=== PATIENT | male | born 1950 | race Caucasian/White ===

== ENCOUNTER 2018-06-24 16:28 | Observation (INO) | payer SELFPAY ==
[2018-06-24] MEDS ORDERED: Sodium Chloride 0.9% 2.5 ML Syringe FLUSH PRN (16:30)
[2018-06-24] MEDS ORDERED: Sodium Chloride 0.9% 1,000 ML IV ONE (16:30)
[2018-06-24] MEDS ORDERED: Sodium Chloride 0.9% 10 ML Syringe FLUSH PRN (16:30)
[2018-06-24] MEDS ORDERED: Ondansetron 4 MG/2 ML SDV IVPUSH ONE (16:30)
[2018-06-24] MEDS ORDERED: Enoxaparin 100 MG/1 ML Syringe SUBCUT ONE (16:33)
[2018-06-24] MEDS ORDERED: Diltiazem 25 MG/5 ML SDV IVPUSH ONE ×2 (16:33→16:57)
--- NOTE | 2018-06-24 16:33 | EDM.PDOC ---
ED HPI GENERAL MEDICAL PROBLEM - General Chief Complaint: Respiratory Problem Stated Complaint: SICK Time Seen by Provider: 06/24/18 16:28 - History of Present Illness INITIAL COMMENTS - FREE TEXT/NARRATIVE: HISTORY AND PHYSICAL: History of present illness: The patient is a 67-year-old male who is followed at [facility] and was sent here from there be EMS ; we were initially told that the patient presented there and had some sadness but was not suicidal and not majorly depressed and that he complained of shortness of breath. Here the patient says that he went there because he did not have any food and he does not have any money or funds to buy the food as he did not get his Social Security check and he needed something to eat. He tells me that he did have shortness of breath but no chest pain per se and he did have a stomachache earlier but after he ate it was much improved and he thinks it was just because he was hungry. He had some nausea earlier as well but is not nauseated now and overall when we discussed his presenting symptoms and his history he seems to vacillate on the story depending on the interviewer. He says he doesn't have any leg pain or swelling he is not passing out or blacking out and he has been drinking hydration but it is not water or juice and he is mostly been consuming caffeinated products such as coffee and Mountain Dew. He has no cardiac or pulmonary history that is aware of and does admit that he has a history of depression and anxiety. He only takes ambilify and has no other prescription medication that he tells me about. He has no leg pain or swelling and says he was feeling fine until he went to [facility] today. He denies any palpitations. Review of systems: As per history of present illness and below otherwise all systems reviewed and negative. Past medical history: As per history of present illness and as reviewed below otherwise noncontributory. Surgical history: As per history of present illness and as reviewed below otherwise noncontributory. Social history: No reported history of drug or alcohol abuse. Family history: As per history of present illness and as reviewed below otherwise noncontributory. Physical exam: General: Well-developed well-nourished very tall male who is nontoxic and vital signs are noted by me. He speaking clearly and easily in ED and does not have a smell of ketones on his breath. He follows commands and is talkative and is not breathless on my evaluation. Vital signs are noted by me HEENT: Atraumatic, normocephalic, pupils reactive, negative for conjunctival pallor or scleral icterus, mucous membranes tacky, throat clear, neck supple, nontender, trachea midline. Lungs: Clear to auscultation, breath sounds equal bilaterally, chest nontender. No wheezing stridor or work of breathing Heart: S1S2, irregular rhythm and tachycardic rate on my evaluation but no overt murmur, negative for clicks, rubs, or JVD. Abdomen: Soft, nondistended, nontender. Negative for masses or hepatosplenomegaly. Negative for costovertebral tenderness. Pelvis: Stable nontender. Genitourinary: Deferred. Rectal: Deferred. Extremities: Atraumatic, negative for cords or calf pain. Neurovascular unremarkable. No pedal edema or leg asymmetry Neuro: Awake, alert, oriented. Cranial nerves II through XII unremarkable. Cerebellum unremarkable. Motor and sensory unremarkable throughout. Exam nonfocal. Diagnostics: EKG CBC CMP d-dimer INR troponin TSH UA influenza swab chest x-ray lactic acid CTA of the chest Therapeutics: IV O2 monitor IV fluids Cardizem Lovenox On reevaluation the patient's heart rate is very variable, when I entered the room it was 130s and he was trying to put his wallet back in his hands and as I spoke with them and he seemed to calm down somewhat he will go down to the 80s or 90s. He understands that he needs to be admitted to the hospital and we are currently awaiting the remainder of his testing results to contact the provider our hospitalist for admission. 1735: This case was discussed with our hospitalist Dr. Posey would like me to try to manage this patient without a Cardizem drip. After the second dose of Cardizem 10 mg his heart rate is now in the 80s. We will continue to observe and treat appropriately. I will continue monitoring his workup and plan for telemetry admission and less there is a status change in his heart rate. After a liter of IV fluids he still has not produced a urine sample. I will continue with IV hydration 1846: Case was rediscussed with Dr. Posey and he is aware of the lactic acid level and depending CTA results and the fact the patient has not made a urine yet despite IV fluids. He is already admitted the patient to telemetry as an observation and currently the patient's heart rate is in the 70s and he is resting quietly. I will monitor the results of the CTA and recontact the hospitalist as needed and plan on observation admission. He currently is not complaining of any shortness of breath or chest pain. 1900: Case was endorsed to Dr. Trejo to follow-up with CTA of the chest results and to improve the transfer to the floor. The patient still at this point has not given a UA sample but we will continue to try to get one. Impression: New-onset atrial fibrillation with RVR, symptomatic with shortness of breath; dehydration; history of anxiety and depression stable Definitive disposition and diagnosis as appropriate pending reevaluation and review of above. bodyaches Pain Score (Numeric/FACES): 8 - Related Data Allergies Allergy/AdvReac Type Severity Reaction Status Date / Time Penicillins Allergy Chills Verified 06/24/18 16:30 Home Meds: Home Meds ARIPiprazole [Abilify] 5 mg PO DAILY 06/24/18 [History] Acetaminophen [Tylenol Extra Strength] 500 mg PO ASDIRECTED PRN 06/24/18 [ History] ED ROS GENERAL - Review of Systems Review Of Systems: ROS reveals no pertinent complaints other than HPI. ED EXAM, GENERAL - Physical Exam Exam: See Below (See dictation) Course - Vital Signs Last Recorded V/S: Last Vital Signs Temp 36.6 C 06/24/18 16:31 Pulse 78 06/24/18 18:43 Resp 18 06/24/18 18:43 BP 107/66 06/24/18 18:43 Pulse Ox 98 06/24/18 18:43 - Orders/Labs/Meds Orders: Active Orders 24 hr Category Date Time Status Patient Status [ADT] Routine ADT 06/24/18 18:04 Active Blood Glucose Check, Bedside [RC] ONETIME Care 06/24/18 16:30 Active Cardiac Monitoring [RC] . DIRECTED Care 06/24/18 16:29 Active Cardiac Monitoring [RC] CONTINUOUS Care 06/24/18 18:05 Active EKG Documentation Completion [RC] STAT Care 06/24/18 16:29 Active Oxygen Therapy [RC] PRN Care 06/24/18 18:04 Active Oxygen Therapy, ED [RC] ASDIRECTED Care 06/24/18 16:29 Active Pulse Oximetry [RC] ASDIRECTED Care 06/24/18 16:29 Active Up With Assistance [RC] ASDIRECTED Care 06/24/18 18:04 Active VTE/DVT Education [RC] PER UNIT ROUTINE Care 06/24/18 18:04 Active Vital Signs [RC] Q4H Care 06/24/18 18:04 Active Heart Healthy Diet [DIET] Diet 06/24/18 Breakfast Active Ang Chest [CT] Stat Exams 06/24/18 17:19 Taken CBC WITH AUTO DIFF [HEME] AM Lab 06/25/18 05:11 Ordered COMPREHENSIVE METABOLIC PN,CMP [CHEM] AM Lab 06/25/18 05:11 Ordered MAGNESIUM [CHEM] Routine Lab 06/24/18 18:04 Ordered TROPONIN I [CHEM] Q6H Lab 06/24/18 18:04 Ordered TROPONIN I [CHEM] Q6H Lab 06/25/18 00:04 Ordered UA RFX MINH AND CULT IF INDIC [URIN] Stat Lab 06/24/18 16:30 Ordered ARIPiprazole [Abilify] Med 06/25/18 09:00 Active 5 mg PO DAILY Acetaminophen [Tylenol] Med 06/24/18 18:04 Active 650 mg PO Q4H PRN Docusate Sodium [Colace] Med 06/24/18 18:04 Active 100 mg PO BID PRN Enoxaparin [Lovenox] Med 06/24/18 18:15 Active 40 mg SUBCUT Q24H Nicotine [Habitrol] Med 06/24/18 18:15 Active 14 mg TRDERM DAILY Ondansetron [Zofran ODT] Med 06/24/18 18:04 Active 4 mg PO Q4H PRN Sodium Chloride 0.9% [Normal Saline] 1,000 ml Med 06/24/18 17:45 Active IV ASDIRECTED Sodium Chloride 0.9% [Normal Saline] 1,000 ml Med 06/24/18 18:15 Active IV ASDIRECTED Sodium Chloride 0.9% [Saline Flush] Med 06/24/18 16:30 Active 10 ml FLUSH ASDIRECTED PRN Sodium Chloride 0.9% [Saline Flush] Med 06/24/18 16:30 Active 2.5 ml FLUSH ASDIRECTED PRN Temazepam [Restoril] Med 06/24/18 18:04 Active 15 mg PO BEDTIME PRN oxyCODONE Med 06/24/18 18:04 Active 5 mg PO Q4H PRN Saline Lock Insert [OM.PC] Stat Oth 06/24/18 16:29 Ordered Resuscitation Status Routine Resus Stat 06/24/18 18:04 Ordered Medication Orders Acetaminophen (Tylenol) 650 mg PO Q4H PRN PRN Reason: Pain (Mild 1-3)/fever Aripiprazole (Abilify) 5 mg PO DAILY MESERET Docusate Sodium (Colace) 100 mg PO BID PRN PRN Reason: Constipation Enoxaparin Sodium (Lovenox) 40 mg SUBCUT Q24H MESERET Sodium Chloride (Normal Saline) 1,000 mls @ 125 mls/hr IV ASDIRECTED MESERET Last Infusion: 06/24/18 18:42 Dose: 999 mls/hr Admin: 06/24/18 17:44 Dose: 125 mls/hr Sodium Chloride (Normal Saline) 1,000 mls @ 75 mls/hr IV ASDIRECTED [facility] Nicotine (Habitrol) 14 mg TRDERM DAILY [facility] Ondansetron HCl (Zofran Odt) 4 mg PO Q4H PRN PRN Reason: nausea, able to take PO Oxycodone HCl (Oxycodone) 5 mg PO Q4H PRN PRN Reason: Pain (moderate 4-6) Sodium Chloride (Saline Flush) 10 ml FLUSH ASDIRECTED PRN PRN Reason: Keep Vein Open Last Admin: 06/24/18 16:39 Dose: 10 ml Sodium Chloride (Saline Flush) 2.5 ml FLUSH ASDIRECTED PRN PRN Reason: Keep Vein Open Last Admin: 06/24/18 16:39 Dose: 2.5 ml Temazepam (Restoril) 15 mg PO BEDTIME PRN PRN Reason: Sleep Labs: Laboratory Tests 06/24/18 06/24/18 06/24/18 Range/Units 16:35 16:35 16:35 WBC 8.45 (4.0-11.0) K/uL RBC 4.67 (4.50-5.90) M/uL Hgb 10.4 L (13.0-17.0) g/dL Hct 33.7 L (38.0-50.0) % MCV 72.2 L (80.0-98.0) fL MCH 22.3 L (27.0-32.0) pg MCHC 30.9 L (31.0-37.0) g/dL RDW Std Deviation 48.3 (28.0-62.0) fl RDW Coeff of Hitesh 19 H (11.0-15.0) % Plt Count 199 (150-400) K/uL MPV 9.80 (7.40-12.00) fL Neut % (Auto) 84.9 H (48.0-80.0) % Lymph % (Auto) 5.7 L (16.0-40.0) % [place] % (Auto) 9.3 (0.0-15.0) % Eos % (Auto) 0.0 (0.0-7.0) % Baso % (Auto) 0.1 (0.0-1.5) % Neut # (Auto) 7.2 H (1.4-5.7) K/uL Lymph # (Auto) 0.5 L (0.6-2.4) K/uL [place] # (Auto) 0.8 (0.0-0.8) K/uL Eos # (Auto) 0.0 (0.0-0.7) K/uL Baso # (Auto) 0.0 (0.0-0.1) K/uL Nucleated RBC % 0.0 /100WBC Nucleated RBCs # 0 K/uL INR 1.39 D-Dimer, Quantitative 1.83 H (0.0-0.50) mg/L FEU Lactate 3.7 H (0.20-2.00) mmol/L Sodium (136-148) mmol/L Potassium (3.5-5.1) mmol/L Chloride (98-107) mmol/L Carbon Dioxide (21.0-32.0) mmol/L BUN (7.0-18.0) mg/dL Creatinine (0.8-1.3) mg/dL Est Cr Clr Drug Dosing mL/min Estimated GFR (MDRD) ml/min Glucose (74-106) mg/dL POC Glucose (60-110) mg/dL Calcium (8.5-10.1) mg/dL Total Bilirubin (0.2-1.0) mg/dL AST (15-37) IU/L ALT (14-63) IU/L Alkaline Phosphatase (46-116) U/L Troponin I (0.000-0.056) ng/mL Total Protein (6.4-8.2) g/dL Albumin (3.4-5.0) g/dL Globulin (2.6-4.0) g/dL Albumin/Globulin Ratio (0.9-1.6) TSH 3rd Generation (0.36-3.74) uIU/mL 06/24/18 06/24/18 Range/Units 16:35 16:48 WBC (4.0-11.0) K/uL RBC (4.50-5.90) M/uL Hgb (13.0-17.0) g/dL Hct (38.0-50.0) % MCV (80.0-98.0) fL MCH (27.0-32.0) pg MCHC (31.0-37.0) g/dL RDW Std Deviation (28.0-62.0) fl RDW Coeff of Hitesh (11.0-15.0) % Plt Count (150-400) K/uL MPV (7.40-12.00) fL Neut % (Auto) (48.0-80.0) % Lymph % (Auto) (16.0-40.0) % [place] % (Auto) (0.0-15.0) % Eos % (Auto) (0.0-7.0) % Baso % (Auto) (0.0-1.5) % Neut # (Auto) (1.4-5.7) K/uL Lymph # (Auto) (0.6-2.4) K/uL [place] # (Auto) (0.0-0.8) K/uL Eos # (Auto) (0.0-0.7) K/uL Baso # (Auto) (0.0-0.1) K/uL Nucleated RBC % /100WBC Nucleated RBCs # K/uL INR D-Dimer, Quantitative (0.0-0.50) mg/L FEU Lactate (0.20-2.00) mmol/L Sodium 139 (136-148) mmol/L Potassium 5.3 H (3.5-5.1) mmol/L Chloride 104 (98-107) mmol/L Carbon Dioxide 19.0 L (21.0-32.0) mmol/L BUN 27 H (7.0-18.0) mg/dL Creatinine 1.7 H (0.8-1.3) mg/dL Est Cr Clr Drug Dosing 44.47 mL/min Estimated GFR (MDRD) 40.7 ml/min Glucose 111 H (74-106) mg/dL POC Glucose 111 H (60-110) mg/dL Calcium 8.8 (8.5-10.1) mg/dL Total Bilirubin 0.9 (0.2-1.0) mg/dL AST 134 H (15-37) IU/L ALT 128 H (14-63) IU/L Alkaline Phosphatase 130 H (46-116) U/L Troponin I < 0.050 (0.000-0.056) ng/mL Total Protein 7.4 (6.4-8.2) g/dL Albumin 3.5 (3.4-5.0) g/dL Globulin 3.9 (2.6-4.0) g/dL Albumin/Globulin Ratio 0.9 (0.9-1.6) TSH 3rd Generation 2.18 (0.36-3.74) uIU/mL Meds: Medications Generic Name Dose Route Start Last Admin Trade Name Freq PRN Reason Stop Dose Admin Acetaminophen 650 mg 06/24/18 18:04 Tylenol PO Q4H PRN Pain (Mild 1-3)/fever Aripiprazole 5 mg 06/25/18 09:00 Abilify PO DAILY MESERET Docusate Sodium 100 mg 06/24/18 18:04 Colace PO BID PRN Constipation Enoxaparin Sodium 40 mg 06/24/18 18:15 Lovenox SUBCUT Q24H MESERET Sodium Chloride 1,000 mls @ 125 mls/hr 06/24/18 17:45 06/24/18 18:42 Normal Saline IV 999 mls/hr ASDIRECTED MESERET Infusion Sodium Chloride 1,000 mls @ 75 mls/hr 06/24/18 18:15 Normal Saline IV ASDIRECTED MESERET Nicotine 14 mg 06/24/18 18:15 Habitrol TRDERM DAILY MESERET Ondansetron HCl 4 mg 06/24/18 18:04 Zofran Odt PO Q4H PRN nausea, able to take PO Oxycodone HCl 5 mg 06/24/18 18:04 Oxycodone PO Q4H PRN Pain (moderate 4-6) Sodium Chloride 10 ml 06/24/18 16:30 06/24/18 16:39 Saline Flush FLUSH 10 ml ASDIRECTED PRN Administration Keep Vein Open Sodium Chloride 2.5 ml 06/24/18 16:30 06/24/18 16:39 Saline Flush FLUSH 2.5 ml ASDIRECTED PRN Administration Keep Vein Open Temazepam 15 mg 06/24/18 18:04 Restoril PO BEDTIME PRN Sleep Discontinued Medications Generic Name Dose Route Start Last Admin Trade Name Freq PRN Reason Stop Dose Admin Diltiazem HCl 10 mg 06/24/18 16:33 06/24/18 16:40 Diltiazem IVPUSH 06/24/18 16:34 10 mg ONETIME ONE Administration Diltiazem HCl 10 mg 06/24/18 16:57 06/24/18 17:18 Diltiazem IVPUSH 06/24/18 16:58 10 mg ONETIME ONE Administration Enoxaparin Sodium 75 mg 06/24/18 16:33 06/24/18 16:39 Lovenox SUBCUT 06/24/18 16:34 75 mg ONETIME ONE Administration Sodium Chloride 1,000 mls @ 999 mls/hr 06/24/18 16:30 06/24/18 16:39 Normal Saline IV 06/24/18 17:30 999 mls/hr STAT ONE Administration Iopamidol 50 ml 06/24/18 18:50 06/24/18 18:50 Isovue-370 (76%) IV 06/24/18 18:51 50 ml ONETIME ONE Administration Ondansetron HCl 4 mg 06/24/18 16:30 06/24/18 16:40 Zofran IVPUSH 06/24/18 16:31 4 mg ONETIME ONE Administration Departure - Departure Time of Disposition: 18:48 Disposition: Refer to Observation Condition: Good Clinical Impression: Atrial fibrillation with RVR - Discharge Information Referrals: PCP,None [Primary Care Provider] - Forms: ED Department Discharge - My Orders Last 24 Hours: My Active Orders 06/24/18 16:29 Cardiac Monitoring [RC] . DIRECTED EKG Documentation Completion [RC] STAT Oxygen Therapy, ED [RC] ASDIRECTED Pulse Oximetry [RC] ASDIRECTED Saline Lock Insert [OM.PC] Stat 06/24/18 16:30 Blood Glucose Check, Bedside [RC] ONETIME UA RFX MINH AND CULT IF INDIC [URIN] Stat Sodium Chloride 0.9% [Saline Flush] 10 ml FLUSH ASDIRECTED PRN Sodium Chloride 0.9% [Saline Flush] 2.5 ml FLUSH ASDIRECTED PRN 06/24/18 17:19 Ang Chest [CT] Stat 06/24/18 17:45 Sodium Chloride 0.9% [Normal Saline] 1,000 ml IV ASDIRECTED - Assessment/Plan Last 24 Hours: My Active Orders 06/24/18 16:29 Cardiac Monitoring [RC] . DIRECTED EKG Documentation Completion [RC] STAT Oxygen Therapy, ED [RC] ASDIRECTED Pulse Oximetry [RC] ASDIRECTED Saline Lock Insert [OM.PC] Stat 06/24/18 16:30 Blood Glucose Check, Bedside [RC] ONETIME UA RFX MINH AND CULT IF INDIC [URIN] Stat Sodium Chloride 0.9% [Saline Flush] 10 ml FLUSH ASDIRECTED PRN Sodium Chloride 0.9% [Saline Flush] 2.5 ml FLUSH ASDIRECTED PRN 06/24/18 17:19 Ang Chest [CT] Stat 06/24/18 17:45 Sodium Chloride 0.9% [Normal Saline] 1,000 ml IV ASDIRECTED
--- NOTE | 2018-06-24 17:11 | CR ---
Indication: Shortness of breath, anxiety Technique: Chest 1 view. Comparison: None Findings: Cardiomegaly. Normal superior mediastinum. No focal infiltrate, mass, effusion, or pneumothorax. Osseous structures intact. Impression: No sign of acute disease. Cardiomegaly. Dictated by Gege Bolton MD @ Jun 24 2018 5:09PM Signed by Dr. Gege Bolton @ Jun 24 2018 5:09PM
[2018-06-24] MEDS ORDERED: Sodium Chloride 0.9% 1,000 ML IV SCH ×2 (17:45→18:15)
[2018-06-24 17:48] LABS: CHLORIDE,CL 104 mmol/L (98-107); SODIUM,NA 139 mmol/L (136-148)
[2018-06-24] MEDS ORDERED: Docusate Sodium 100 MG Cap PO PRN (18:04)
[2018-06-24] MEDS ORDERED: Temazepam 15 MG Cap PO PRN (18:04)
[2018-06-24] MEDS ORDERED: oxyCODONE 5 MG Tab PO PRN (18:04)
[2018-06-24] MEDS ORDERED: Ondansetron 4 MG Tab.DIS PO PRN (18:04)
[2018-06-24] MEDS ORDERED: Nicotine 14 MG/24 Hr Patch TRDERM SCH (18:15)
[2018-06-24] MEDS ORDERED: Enoxaparin 40 MG/0.4 ML Syringe SUBCUT SCH (18:15)
--- NOTE | 2018-06-24 18:38 | PCM.HP ---
H&P History of Present Illness - General Date of Service: 06/24/18 Admit Problem/Dx: Admission Diagnosis/Problem Admission Diagnosis/Problem Atrial fibrillation Source of Information: Patient History Limitations: Reports: Other (Unreliable historian) - History of Present Illness Initial Comments - Free Text/Narative: The patient is a 67-year-old gentleman who is currently being followed by [facility] and was sent here via EMS. The patient is currently living in a local motel and his also security money ran out and he no longer has a place to live nor does he have any foods. The patient has been complaining of pain secondary to his arthritis however during the emergency department visit he was noted to be short of breath and have atrial fibrillation with RVR. The patient's heart rate was around 160 bpm. The patient' s narration is somewhat scattered and he says that he has been taking his Abilify. He seems that he has no concern with regards to his A. fib with RVR at this time. The patient has denied any pain except associated with his ankles and knees due to his arthritis. He also says that he has been hungry. He has denied any chest pain or palpitations. The patient has no other visits locally with medical services and he says that he is from [place] and he came here because "they don't want me there". Onset of Symptoms: Reports: Unknown/Unsure Duration of Symptoms: Reports: Week(s): Location: Reports: Head Quality: Reports: Ache, Throbbing Severity: Moderate Improves with: Reports: Rest Worsens with: Reports: Movement Context: Reports: Activity/Exercise Associated Symptoms: Reports: No Other Symptoms bodyaches Pain Score (Numeric/FACES): 8 - Related Data Allergies/Adverse Reactions: Allergies Allergy/AdvReac Type Severity Reaction Status Date / Time Penicillins Allergy Chills Verified 06/24/18 16:30 Home Medications: Home Meds ARIPiprazole [Abilify] 5 mg PO DAILY 06/24/18 [History] Acetaminophen [Tylenol Extra Strength] 500 mg PO ASDIRECTED PRN 06/24/18 [ History] Past Medical History HEENT History: Reports: None Cardiovascular History: Reports: None Respiratory History: Reports: None Gastrointestinal History: Reports: None Genitourinary History: Reports: None Musculoskeletal History: Reports: Arthritis Neurological History: Reports: None Psychiatric History: Reports: Anxiety, Depression Endocrine/Metabolic History: Reports: None Hematologic History: Reports: None Immunologic History: Reports: None Oncologic (Cancer) History: Reports: None Dermatologic History: Reports: None - Past Surgical History Head Surgeries/Procedures: Reports: None HEENT Surgical History: Reports: None Cardiovascular Surgical History: Reports: None Respiratory Surgical History: Reports: None GI Surgical History: Reports: None Male Surgical History: Reports: None Endocrine Surgical History: Reports: None Neurological Surgical History: Reports: None Musculoskeletal Surgical History: Reports: Other (See Below) Other Musculoskeletal Surgeries/Procedures:: left hip repair Oncologic Surgical History: Reports: None Dermatological Surgical History: Reports: None Social & Family History - Family History Family Medical History: Noncontributory - Tobacco Use Smoking Status *Q: Former Smoker Used Tobacco, but Quit: Yes Month/Year Tobacco Last Used: 15 - Caffeine Use Caffeine Use: Reports: Coffee, Soda - Recreational Drug Use Recreational Drug Use: No - Living Situation & Occupation Living situation: Reports: Single, Other (Homeless) Occupation: Unemployed H&P Review of Systems - Review of Systems: Review Of Systems: See Below General: Reports: Decreased Appetite HEENT: Reports: No Symptoms Pulmonary: Reports: Shortness of Breath Cardiovascular: Reports: No Symptoms Gastrointestinal: Reports: No Symptoms Genitourinary: Reports: No Symptoms Musculoskeletal: Reports: Leg Pain Skin: Reports: No Symptoms Psychiatric: Reports: Confusion, Depression, Anxiety Neurological: Reports: Headache Hematologic/Lymphatic: Reports: No Symptoms Immunologic: Reports: No Symptoms Exam - Exam Exam: See Below - Vital Signs Vital Signs: Last Vital Signs Temp 36.6 C 06/24/18 16:31 Pulse 77 06/24/18 17:46 Resp 18 06/24/18 17:19 BP 126/65 06/24/18 17:19 Pulse Ox 98 06/24/18 17:19 Weight: 72.575 kg - Exam Quality Assessment: No: Supplemental Oxygen General: Alert, Oriented, Cooperative, Mild Distress, Other (Disheveled, temporal wasting) HEENT: Conjunctiva Clear, EACs Clear, EOMI, Nares Patent, Other (Poor oral hygiene, multiple caries), PERRLA. No: Mucosa Moist & Bowler (Oropharynx dry) Neck: Supple, Trachea Midline Lungs: Clear to Auscultation, Normal Respiratory Effort Cardiovascular: Regular Rate, Irregular Rhythm GI/Abdominal Exam: Normal Bowel Sounds, Soft, Non-Tender, No Distention (Male) Exam: Deferred Rectal (Males) Exam: Deferred Back Exam: Normal Inspection, Full Range of Motion Extremities: Normal Inspection, No Pedal Edema Skin: Warm, Dry, Intact Neurological: Cranial Nerves Intact. No: Normal Speech (Pressured speech) Psychiatric: Alert. No: Normal Affect (Flat), Normal Mood (Depressed) - Patient Data Lab Results Last 24 hrs: Laboratory Results - last 24 hr 06/24/18 06/24/18 06/24/18 Range/Units 16:35 16:35 16:35 WBC 8.45 (4.0-11.0) K/uL RBC 4.67 (4.50-5.90) M/uL Hgb 10.4 L (13.0-17.0) g/dL Hct 33.7 L (38.0-50.0) % MCV 72.2 L (80.0-98.0) fL MCH 22.3 L (27.0-32.0) pg MCHC 30.9 L (31.0-37.0) g/dL RDW Std Deviation 48.3 (28.0-62.0) fl RDW Coeff of Hitesh 19 H (11.0-15.0) % Plt Count 199 (150-400) K/uL MPV 9.80 (7.40-12.00) fL Neut % (Auto) 84.9 H (48.0-80.0) % Lymph % (Auto) 5.7 L (16.0-40.0) % Catron % (Auto) 9.3 (0.0-15.0) % Eos % (Auto) 0.0 (0.0-7.0) % Baso % (Auto) 0.1 (0.0-1.5) % Neut # (Auto) 7.2 H (1.4-5.7) K/uL Lymph # (Auto) 0.5 L (0.6-2.4) K/uL Catron # (Auto) 0.8 (0.0-0.8) K/uL Eos # (Auto) 0.0 (0.0-0.7) K/uL Baso # (Auto) 0.0 (0.0-0.1) K/uL Nucleated RBC % 0.0 /100WBC Nucleated RBCs # 0 K/uL INR 1.39 D-Dimer, Quantitative 1.83 H (0.0-0.50) mg/L FEU Lactate 3.7 H (0.20-2.00) mmol/L Sodium (136-148) mmol/L Potassium (3.5-5.1) mmol/L Chloride (98-107) mmol/L Carbon Dioxide (21.0-32.0) mmol/L BUN (7.0-18.0) mg/dL Creatinine (0.8-1.3) mg/dL Est Cr Clr Drug Dosing mL/min Estimated GFR (MDRD) ml/min Glucose (74-106) mg/dL POC Glucose (60-110) mg/dL Calcium (8.5-10.1) mg/dL Total Bilirubin (0.2-1.0) mg/dL AST (15-37) IU/L ALT (14-63) IU/L Alkaline Phosphatase (46-116) U/L Troponin I (0.000-0.056) ng/mL Total Protein (6.4-8.2) g/dL Albumin (3.4-5.0) g/dL Globulin (2.6-4.0) g/dL Albumin/Globulin Ratio (0.9-1.6) TSH 3rd Generation (0.36-3.74) uIU/mL 06/24/18 06/24/18 Range/Units 16:35 16:48 WBC (4.0-11.0) K/uL RBC (4.50-5.90) M/uL Hgb (13.0-17.0) g/dL Hct (38.0-50.0) % MCV (80.0-98.0) fL MCH (27.0-32.0) pg MCHC (31.0-37.0) g/dL RDW Std Deviation (28.0-62.0) fl RDW Coeff of Hitesh (11.0-15.0) % Plt Count (150-400) K/uL MPV (7.40-12.00) fL Neut % (Auto) (48.0-80.0) % Lymph % (Auto) (16.0-40.0) % Catron % (Auto) (0.0-15.0) % Eos % (Auto) (0.0-7.0) % Baso % (Auto) (0.0-1.5) % Neut # (Auto) (1.4-5.7) K/uL Lymph # (Auto) (0.6-2.4) K/uL Catron # (Auto) (0.0-0.8) K/uL Eos # (Auto) (0.0-0.7) K/uL Baso # (Auto) (0.0-0.1) K/uL Nucleated RBC % /100WBC Nucleated RBCs # K/uL INR D-Dimer, Quantitative (0.0-0.50) mg/L FEU Lactate (0.20-2.00) mmol/L Sodium 139 (136-148) mmol/L Potassium 5.3 H (3.5-5.1) mmol/L Chloride 104 (98-107) mmol/L Carbon Dioxide 19.0 L (21.0-32.0) mmol/L BUN 27 H (7.0-18.0) mg/dL Creatinine 1.7 H (0.8-1.3) mg/dL Est Cr Clr Drug Dosing 44.47 mL/min Estimated GFR (MDRD) 40.7 ml/min Glucose 111 H (74-106) mg/dL POC Glucose 111 H (60-110) mg/dL Calcium 8.8 (8.5-10.1) mg/dL Total Bilirubin 0.9 (0.2-1.0) mg/dL AST 134 H (15-37) IU/L ALT 128 H (14-63) IU/L Alkaline Phosphatase 130 H (46-116) U/L Troponin I < 0.050 (0.000-0.056) ng/mL Total Protein 7.4 (6.4-8.2) g/dL Albumin 3.5 (3.4-5.0) g/dL Globulin 3.9 (2.6-4.0) g/dL Albumin/Globulin Ratio 0.9 (0.9-1.6) TSH 3rd Generation 2.18 (0.36-3.74) uIU/mL Result Diagrams: 06/24/18 16:35 06/24/18 16:35 Bean Results Last 24 hrs: Microbiology 03/04/19 16:50 Influenza Type A Antigen Screen - Final Nasopharyngeal Swab NEGATIVE INFLUENZA A VIRUS AG Influenza Type B Antigen Screen - Final NEGATIVE INFLUENZA B VIRUS AG - Problem List (1) Atrial fibrillation with RVR SNOMED Code(s): 692603191675889 ICD Code: I48.91 - UNSPECIFIED ATRIAL FIBRILLATION Status: Chronic Priority: High Current Visit: Yes (2) Depression SNOMED Code(s): 63165505 ICD Code: F32.9 - MAJOR DEPRESSIVE DISORDER, SINGLE EPISODE, UNSPECIFIED Status: Chronic Priority: Medium Current Visit: Yes Qualifiers: Depression Type: major depressive disorder Major depression recurrence: unspecified whether recurrent Active/Remission status: currently active Major depression episode severity: severe Psychotic features: without psychotic features Qualified Code(s): F32.2 - Major depressive disorder, single episode, severe without psychotic features (3) Anxiety SNOMED Code(s): 95922045 ICD Code: F41.9 - ANXIETY DISORDER, UNSPECIFIED Status: Acute Priority: High Current Visit: Yes (4) Hyperkalemia SNOMED Code(s): 25846622 ICD Code: E87.5 - HYPERKALEMIA Status: Acute Priority: High Current Visit: Yes (5) Tobacco abuse disorder SNOMED Code(s): 704767949 ICD Code: Z72.0 - TOBACCO USE Status: Acute Priority: High Current Visit: Yes (6) Transaminitis SNOMED Code(s): 652542883, 068433199 ICD Code: R74.0 - NONSPEC ELEV OF LEVELS OF TRANSAMNS & LACTIC ACID DEHYDRGNSE Status: Acute Priority: High Current Visit: Yes Problem List Initiated/Reviewed/Updated: Yes Orders Last 24hrs: Active Orders 24 hr Category Date Time Status Patient Status [ADT] Routine ADT 06/24/18 18:04 Active Blood Glucose Check, Bedside [RC] ONETIME Care 06/24/18 16:30 Active Cardiac Monitoring [RC] . DIRECTED Care 06/24/18 16:29 Active Cardiac Monitoring [RC] CONTINUOUS Care 06/24/18 18:05 Active EKG Documentation Completion [RC] STAT Care 06/24/18 16:29 Active Oxygen Therapy [RC] PRN Care 06/24/18 18:04 Active Oxygen Therapy, ED [RC] ASDIRECTED Care 06/24/18 16:29 Active Pulse Oximetry [RC] ASDIRECTED Care 06/24/18 16:29 Active Up With Assistance [RC] ASDIRECTED Care 06/24/18 18:04 Active VTE/DVT Education [RC] PER UNIT ROUTINE Care 06/24/18 18:04 Active Vital Signs [RC] Q4H Care 06/24/18 18:04 Active Heart Healthy Diet [DIET] Diet 06/24/18 Breakfast Active Ang Chest [CT] Stat Exams 06/24/18 17:19 Ordered CBC WITH AUTO DIFF [HEME] AM Lab 06/25/18 05:11 Ordered COMPREHENSIVE METABOLIC PN,CMP [CHEM] AM Lab 06/25/18 05:11 Ordered MAGNESIUM [CHEM] Routine Lab 06/24/18 18:04 Ordered TROPONIN I [CHEM] Q6H Lab 06/24/18 18:04 Ordered TROPONIN I [CHEM] Q6H Lab 06/25/18 00:04 Ordered UA RFX BEAN AND CULT IF INDIC [URIN] Stat Lab 06/24/18 16:30 Ordered Acetaminophen [Tylenol] Med 06/24/18 18:04 Active 650 mg PO Q4H PRN Docusate Sodium [Colace] Med 06/24/18 18:04 Active 100 mg PO BID PRN Enoxaparin [Lovenox] Med 06/24/18 18:15 Active 40 mg SUBCUT Q24H Nicotine [Habitrol] Med 06/24/18 18:15 Active 14 mg TRDERM DAILY Ondansetron [Zofran ODT] Med 06/24/18 18:04 Active 4 mg PO Q4H PRN Sodium Chloride 0.9% [Normal Saline] 1,000 ml Med 06/24/18 17:45 Active IV ASDIRECTED Sodium Chloride 0.9% [Normal Saline] 1,000 ml Med 06/24/18 18:15 Active IV ASDIRECTED Sodium Chloride 0.9% [Saline Flush] Med 06/24/18 16:30 Active 10 ml FLUSH ASDIRECTED PRN Sodium Chloride 0.9% [Saline Flush] Med 06/24/18 16:30 Active 2.5 ml FLUSH ASDIRECTED PRN Temazepam [Restoril] Med 06/24/18 18:04 Active 15 mg PO BEDTIME PRN oxyCODONE Med 06/24/18 18:04 Active 5 mg PO Q4H PRN Saline Lock Insert [OM.PC] Stat Oth 06/24/18 16:29 Ordered Resuscitation Status Routine Resus Stat 06/24/18 18:04 Ordered Medication Orders Acetaminophen (Tylenol) 650 mg PO Q4H PRN PRN Reason: Pain (Mild 1-3)/fever Docusate Sodium (Colace) 100 mg PO BID PRN PRN Reason: Constipation Enoxaparin Sodium (Lovenox) 40 mg SUBCUT Q24H [facility] Sodium Chloride (Normal Saline) 1,000 mls @ 125 mls/hr IV ASDIRECTED MESERET Last Admin: 06/24/18 17:44 Dose: 125 mls/hr Sodium Chloride (Normal Saline) 1,000 mls @ 75 mls/hr IV ASDIRECTED [facility] Nicotine (Habitrol) 14 mg TRDERM DAILY [facility] Ondansetron HCl (Zofran Odt) 4 mg PO Q4H PRN PRN Reason: nausea, able to take PO Oxycodone HCl (Oxycodone) 5 mg PO Q4H PRN PRN Reason: Pain (moderate 4-6) Sodium Chloride (Saline Flush) 10 ml FLUSH ASDIRECTED PRN PRN Reason: Keep Vein Open Last Admin: 06/24/18 16:39 Dose: 10 ml Sodium Chloride (Saline Flush) 2.5 ml FLUSH ASDIRECTED PRN PRN Reason: Keep Vein Open Last Admin: 06/24/18 16:39 Dose: 2.5 ml Temazepam (Restoril) 15 mg PO BEDTIME PRN PRN Reason: Sleep Assessment/Plan Comment:: The patient is a 67-year-old gentleman who had been admitted primarily out of concern for atrial fibrillation with RVR. The patient also has been noted to be hyperkalemic as well as dehydrated and with fluid resuscitation this should resolve without further treatment. Repeat laboratory testings have been ordered for the morning. The patient had been given 20 mg of Cardizem in the emergency department and this seems to have slowed the patient's atrial fibrillation adequately. His previous vital signs had shown pulse rate around 60-75 bpm. He is currently anticoagulated with the use of Lovenox. Insulin sure with regards to the patient's social situation whether he'll be able to afford any medication for anticoagulation for his atrial fibrillation. The patient will be followed with regards to his elevations in his ALT and AST. These should normalize with the use of fluids. youth services librarian should be consult and with regards to his social situation and will need to have close follow up with [facility] services. He has been encouraged to ambulate.
[2018-06-24] MEDS ORDERED: Iopamidol 755 MG/ML 50 ML Bottle IV ONE (18:50)
--- NOTE | 2018-06-24 19:15 | CT ---
INDICATION: Shortness of breath, tachycardia TECHNIQUE: CT chest pulmonary PE protocol acquired with 50 cc Isovue 370 IV contrast. COMPARISON: Chest radiograph from same date FINDINGS: Cardiovascular structures: Normal vascular enhancement of the pulmonary arteries, no sign of pulmonary embolism. Borderline cardiomegaly. Coronary artery calcifications. No sign of aneurysm in the thoracic aorta. Mediastinum and dewayne: No mass or adenopathy. Lungs: 4 mm pulmonary nodule right upper lobe image 17 series 401. 2 mm pulmonary nodule periphery of left upper lobe image 37 series 401. Pleura and pericardium: No effusions. Chest wall and axilla: No mass or adenopathy. Upper abdomen: Unremarkable. Bones: Subacute to chronic right anterior 3rd rib fracture. IMPRESSION: No pulmonary embolism or pneumonia. Coronary artery disease. Two pulmonary nodules. Follow-up per Fleischner society guidelines recommended, as listed below. Subacute to chronic right anterior 3rd rib fracture. FLEISCHNER SOCIETY GUIDELINES - SOLID NODULES: MULTIPLE LOW RISK - nodule less than 6 mm: No routine follow-up. - nodule 6-8 mm: CT at 3-6 months, then consider CT at 18-24 months. - nodule greater than 8 mm: CT at 3-6 months, then consider CT at 18-24 months. MULTIPLE HIGH RISK - nodule less than 6 mm: Optional CT at 12 months. - nodule 6-8 mm: CT at 3-6 months, then at 18-24 months. - nodule greater than 8 mm: CT at 3-6 months, then at 18-24 months. Please note that all CT scans at this facility use dose modulation, iterative reconstruction, and/or weight-based dosing when appropriate to reduce radiation dose to as low as reasonably achievable. Dictated by Gege Bolton MD @ Jun 24 2018 7:13PM Signed by Dr. Gege Bolton @ Jun 24 2018 7:13PM
[2018-06-25] MEDS: Acetaminophen 325 MG Tab PO PRN (00:54)
[2018-06-25] MEDS: Diltiazem 25 MG/5 ML SDV IVPUSH PRN ×2 (00:54→08:28)
[2018-06-25 05:55] LABS: CHLORIDE,CL 106 mmol/L (98-107); SODIUM,NA 137 mmol/L (136-148)
--- NOTE | 2018-06-25 08:09 | PCM.PN ---
- General Info Date of Service: 06/25/18 Admission Dx/Problem (Free Text): Admission Diagnosis/Problem Admission Diagnosis/Problem Atrial fibrillation Subjective Update: Feeling ok today. No chest pain or shortness of breath currently. Reports he has some dyspnea when heart rate elevates, but otherwise he is feeling good. Reports he needs to stay in the hospital until he has a place to stay. Functional Status: Reports: Pain Controlled, Tolerating Diet, Ambulating, Urinating - Review of Systems General: Reports: No Symptoms. Denies: Fever, Weakness HEENT: Reports: No Symptoms Pulmonary: Reports: No Symptoms. Denies: Shortness of Breath Cardiovascular: Reports: Palpitations (intermittently). Denies: Chest Pain Gastrointestinal: Reports: No Symptoms. Denies: Abdominal Pain, Nausea, Vomiting Genitourinary: Reports: No Symptoms Musculoskeletal: Reports: No Symptoms Skin: Reports: No Symptoms Neurological: Reports: No Symptoms Psychiatric: Reports: No Symptoms - Patient Data Vitals - Most Recent: Last Vital Signs Temp 97.7 F 06/25/18 05:23 Pulse 86 06/25/18 05:23 Resp 14 06/25/18 05:23 BP 109/82 06/25/18 05:23 Pulse Ox 98 06/25/18 05:23 Weight - Most Recent: 74.389 kg I&O - Last 24 Hours: Intake & Output 06/24/18 06/25/18 06/25/18 22:59 06:59 14:59 Intake Total 1500 Output Total 270 Balance 1230 Lab Results Last 24 Hours: Laboratory Results - last 24 hr 06/24/18 06/24/18 06/24/18 Range/Units 16:35 16:35 16:35 WBC 8.45 (4.0-11.0) K/uL RBC 4.67 (4.50-5.90) M/uL Hgb 10.4 L (13.0-17.0) g/dL Hct 33.7 L (38.0-50.0) % MCV 72.2 L (80.0-98.0) fL MCH 22.3 L (27.0-32.0) pg MCHC 30.9 L (31.0-37.0) g/dL RDW Std Deviation 48.3 (28.0-62.0) fl RDW Coeff of Hitesh 19 H (11.0-15.0) % Plt Count 199 (150-400) K/uL MPV 9.80 (7.40-12.00) fL Neut % (Auto) 84.9 H (48.0-80.0) % Lymph % (Auto) 5.7 L (16.0-40.0) % Villalba % (Auto) 9.3 (0.0-15.0) % Eos % (Auto) 0.0 (0.0-7.0) % Baso % (Auto) 0.1 (0.0-1.5) % Neut # (Auto) 7.2 H (1.4-5.7) K/uL Lymph # (Auto) 0.5 L (0.6-2.4) K/uL Villalba # (Auto) 0.8 (0.0-0.8) K/uL Eos # (Auto) 0.0 (0.0-0.7) K/uL Baso # (Auto) 0.0 (0.0-0.1) K/uL Nucleated RBC % 0.0 /100WBC Nucleated RBCs # 0 K/uL INR 1.39 D-Dimer, Quantitative 1.83 H (0.0-0.50) mg/L FEU Lactate 3.7 H (0.20-2.00) mmol/L Sodium (136-148) mmol/L Potassium (3.5-5.1) mmol/L Chloride (98-107) mmol/L Carbon Dioxide (21.0-32.0) mmol/L BUN (7.0-18.0) mg/dL Creatinine (0.8-1.3) mg/dL Est Cr Clr Drug Dosing mL/min Estimated GFR (MDRD) ml/min Glucose (74-106) mg/dL POC Glucose (60-110) mg/dL Calcium (8.5-10.1) mg/dL Magnesium (1.8-2.4) mg/dL Total Bilirubin (0.2-1.0) mg/dL AST (15-37) IU/L ALT (14-63) IU/L Alkaline Phosphatase (46-116) U/L Troponin I (0.000-0.056) ng/mL Total Protein (6.4-8.2) g/dL Albumin (3.4-5.0) g/dL Globulin (2.6-4.0) g/dL Albumin/Globulin Ratio (0.9-1.6) TSH 3rd Generation (0.36-3.74) uIU/mL Urine Color Urine Appearance Urine pH (5.0-8.0) Ur Specific [place] (1.001-1.035) Urine Protein (NEGATIVE) mg/dL Urine Glucose (UA) (NEGATIVE) mg/dL Urine Ketones (NEGATIVE) mg/dL Urine Occult Blood (NEGATIVE) Urine Nitrite (NEGATIVE) Urine Bilirubin (NEGATIVE) Urine Urobilinogen (<2.0) EU/dL Ur Leukocyte Esterase (NEGATIVE) Urine RBC (0-2/HPF) Urine WBC (0-5/HPF) Ur Epithelial Cells (NONE-FEW) Urine Bacteria (NEGATIVE) 06/24/18 06/24/18 06/24/18 Range/Units 16:35 16:48 21:19 WBC (4.0-11.0) K/uL RBC (4.50-5.90) M/uL Hgb (13.0-17.0) g/dL Hct (38.0-50.0) % MCV (80.0-98.0) fL MCH (27.0-32.0) pg MCHC (31.0-37.0) g/dL RDW Std Deviation (28.0-62.0) fl RDW Coeff of Hitesh (11.0-15.0) % Plt Count (150-400) K/uL MPV (7.40-12.00) fL Neut % (Auto) (48.0-80.0) % Lymph % (Auto) (16.0-40.0) % Villalba % (Auto) (0.0-15.0) % Eos % (Auto) (0.0-7.0) % Baso % (Auto) (0.0-1.5) % Neut # (Auto) (1.4-5.7) K/uL Lymph # (Auto) (0.6-2.4) K/uL Villalba # (Auto) (0.0-0.8) K/uL Eos # (Auto) (0.0-0.7) K/uL Baso # (Auto) (0.0-0.1) K/uL Nucleated RBC % /100WBC Nucleated RBCs # K/uL INR D-Dimer, Quantitative (0.0-0.50) mg/L FEU Lactate 1.7 (0.20-2.00) mmol/L Sodium 139 (136-148) mmol/L Potassium 5.3 H (3.5-5.1) mmol/L Chloride 104 (98-107) mmol/L Carbon Dioxide 19.0 L (21.0-32.0) mmol/L BUN 27 H (7.0-18.0) mg/dL Creatinine 1.7 H (0.8-1.3) mg/dL Est Cr Clr Drug Dosing 44.47 mL/min Estimated GFR (MDRD) 40.7 ml/min Glucose 111 H (74-106) mg/dL POC Glucose 111 H (60-110) mg/dL Calcium 8.8 (8.5-10.1) mg/dL Magnesium (1.8-2.4) mg/dL Total Bilirubin 0.9 (0.2-1.0) mg/dL AST 134 H (15-37) IU/L ALT 128 H (14-63) IU/L Alkaline Phosphatase 130 H (46-116) U/L Troponin I < 0.050 (0.000-0.056) ng/mL Total Protein 7.4 (6.4-8.2) g/dL Albumin 3.5 (3.4-5.0) g/dL Globulin 3.9 (2.6-4.0) g/dL Albumin/Globulin Ratio 0.9 (0.9-1.6) TSH 3rd Generation 2.18 (0.36-3.74) uIU/mL Urine Color Urine Appearance Urine pH (5.0-8.0) Ur Specific [place] (1.001-1.035) Urine Protein (NEGATIVE) mg/dL Urine Glucose (UA) (NEGATIVE) mg/dL Urine Ketones (NEGATIVE) mg/dL Urine Occult Blood (NEGATIVE) Urine Nitrite (NEGATIVE) Urine Bilirubin (NEGATIVE) Urine Urobilinogen (<2.0) EU/dL Ur Leukocyte Esterase (NEGATIVE) Urine RBC (0-2/HPF) Urine WBC (0-5/HPF) Ur Epithelial Cells (NONE-FEW) Urine Bacteria (NEGATIVE) 06/24/18 06/24/18 06/25/18 Range/Units 22:00 22:48 00:30 WBC (4.0-11.0) K/uL RBC (4.50-5.90) M/uL Hgb (13.0-17.0) g/dL Hct (38.0-50.0) % MCV (80.0-98.0) fL MCH (27.0-32.0) pg MCHC (31.0-37.0) g/dL RDW Std Deviation (28.0-62.0) fl RDW Coeff of Hitesh (11.0-15.0) % Plt Count (150-400) K/uL MPV (7.40-12.00) fL Neut % (Auto) (48.0-80.0) % Lymph % (Auto) (16.0-40.0) % Villalba % (Auto) (0.0-15.0) % Eos % (Auto) (0.0-7.0) % Baso % (Auto) (0.0-1.5) % Neut # (Auto) (1.4-5.7) K/uL Lymph # (Auto) (0.6-2.4) K/uL Villalba # (Auto) (0.0-0.8) K/uL Eos # (Auto) (0.0-0.7) K/uL Baso # (Auto) (0.0-0.1) K/uL Nucleated RBC % /100WBC Nucleated RBCs # K/uL INR D-Dimer, Quantitative (0.0-0.50) mg/L FEU Lactate (0.20-2.00) mmol/L Sodium (136-148) mmol/L Potassium (3.5-5.1) mmol/L Chloride (98-107) mmol/L Carbon Dioxide (21.0-32.0) mmol/L BUN (7.0-18.0) mg/dL Creatinine (0.8-1.3) mg/dL Est Cr Clr Drug Dosing mL/min Estimated GFR (MDRD) ml/min Glucose (74-106) mg/dL POC Glucose (60-110) mg/dL Calcium (8.5-10.1) mg/dL Magnesium 2.0 (1.8-2.4) mg/dL Total Bilirubin (0.2-1.0) mg/dL AST (15-37) IU/L ALT (14-63) IU/L Alkaline Phosphatase (46-116) U/L Troponin I < 0.050 < 0.050 (0.000-0.056) ng/mL Total Protein (6.4-8.2) g/dL Albumin (3.4-5.0) g/dL Globulin (2.6-4.0) g/dL Albumin/Globulin Ratio (0.9-1.6) TSH 3rd Generation (0.36-3.74) uIU/mL Urine Color YELLOW Urine Appearance CLEAR Urine pH 6.0 (5.0-8.0) Ur Specific [place] 1.015 (1.001-1.035) Urine Protein NEGATIVE (NEGATIVE) mg/dL Urine Glucose (UA) NEGATIVE (NEGATIVE) mg/dL Urine Ketones NEGATIVE (NEGATIVE) mg/dL Urine Occult Blood TRACE-INTACT H (NEGATIVE) Urine Nitrite NEGATIVE (NEGATIVE) Urine Bilirubin NEGATIVE (NEGATIVE) Urine Urobilinogen 2.0 H (<2.0) EU/dL Ur Leukocyte Esterase NEGATIVE (NEGATIVE) Urine RBC 0-1 (0-2/HPF) Urine WBC 0-1 (0-5/HPF) Ur Epithelial Cells RARE (NONE-FEW) Urine Bacteria RARE (NEGATIVE) 06/25/18 06/25/18 Range/Units 05:18 05:18 WBC 2.82 L (4.0-11.0) K/uL RBC 4.02 L (4.50-5.90) M/uL Hgb 8.8 L (13.0-17.0) g/dL Hct 29.1 L (38.0-50.0) % MCV 72.4 L (80.0-98.0) fL MCH 21.9 L (27.0-32.0) pg MCHC 30.2 L (31.0-37.0) g/dL RDW Std Deviation 47.9 (28.0-62.0) fl RDW Coeff of Hitesh 18 H (11.0-15.0) % Plt Count 168 (150-400) K/uL MPV 9.90 (7.40-12.00) fL Neut % (Auto) 51.7 (48.0-80.0) % Lymph % (Auto) 31.9 (16.0-40.0) % Villalba % (Auto) 13.5 (0.0-15.0) % Eos % (Auto) 2.5 (0.0-7.0) % Baso % (Auto) 0.4 (0.0-1.5) % Neut # (Auto) 1.5 (1.4-5.7) K/uL Lymph # (Auto) 0.9 (0.6-2.4) K/uL Villalba # (Auto) 0.4 (0.0-0.8) K/uL Eos # (Auto) 0.1 (0.0-0.7) K/uL Baso # (Auto) 0.0 (0.0-0.1) K/uL Nucleated RBC % 1.0 /100WBC Nucleated RBCs # 0 K/uL INR D-Dimer, Quantitative (0.0-0.50) mg/L FEU Lactate (0.20-2.00) mmol/L Sodium 137 (136-148) mmol/L Potassium 4.3 (3.5-5.1) mmol/L Chloride 106 (98-107) mmol/L Carbon Dioxide 20.0 L (21.0-32.0) mmol/L BUN 21 H (7.0-18.0) mg/dL Creatinine 1.2 (0.8-1.3) mg/dL Est Cr Clr Drug Dosing 64.57 mL/min Estimated GFR (MDRD) > 60.0 ml/min Glucose 81 (74-106) mg/dL POC Glucose (60-110) mg/dL Calcium 7.5 L (8.5-10.1) mg/dL Magnesium (1.8-2.4) mg/dL Total Bilirubin 0.7 (0.2-1.0) mg/dL AST 108 H (15-37) IU/L ALT 108 H (14-63) IU/L Alkaline Phosphatase 111 (46-116) U/L Troponin I (0.000-0.056) ng/mL Total Protein 6.2 L (6.4-8.2) g/dL Albumin 2.7 L (3.4-5.0) g/dL Globulin 3.5 (2.6-4.0) g/dL Albumin/Globulin Ratio 0.8 L (0.9-1.6) TSH 3rd Generation (0.36-3.74) uIU/mL Urine Color Urine Appearance Urine pH (5.0-8.0) Ur Specific [place] (1.001-1.035) Urine Protein (NEGATIVE) mg/dL Urine Glucose (UA) (NEGATIVE) mg/dL Urine Ketones (NEGATIVE) mg/dL Urine Occult Blood (NEGATIVE) Urine Nitrite (NEGATIVE) Urine Bilirubin (NEGATIVE) Urine Urobilinogen (<2.0) EU/dL Ur Leukocyte Esterase (NEGATIVE) Urine RBC (0-2/HPF) Urine WBC (0-5/HPF) Ur Epithelial Cells (NONE-FEW) Urine Bacteria (NEGATIVE) Bean Results Last 24 Hours: Microbiology 06/24/18 16:50 Influenza Type A Antigen Screen - Final Nasopharyngeal Swab NEGATIVE INFLUENZA A VIRUS AG Influenza Type B Antigen Screen - Final NEGATIVE INFLUENZA B VIRUS AG Med Orders - Current: Current Medications Acetaminophen (Tylenol) 650 mg PO Q4H PRN PRN Reason: Pain (Mild 1-3)/fever Last Admin: 06/25/18 00:54 Dose: 650 mg Aripiprazole (Abilify) 5 mg PO DAILY [facility] Diltiazem HCl (Diltiazem) 10 mg IVPUSH Q3H PRN PRN Reason: HR above 100 Last Admin: 06/25/18 00:54 Dose: 10 mg Docusate Sodium (Colace) 100 mg PO BID PRN PRN Reason: Constipation Enoxaparin Sodium (Lovenox) 40 mg SUBCUT Q24H [facility] Sodium Chloride (Normal Saline) 1,000 mls @ 75 mls/hr IV ASDIRECTED [facility] Last Admin: 06/24/18 20:58 Dose: 75 mls/hr Ondansetron HCl (Zofran Odt) 4 mg PO Q4H PRN PRN Reason: nausea, able to take PO Oxycodone HCl (Oxycodone) 5 mg PO Q4H PRN PRN Reason: Pain (moderate 4-6) Sodium Chloride (Saline Flush) 10 ml FLUSH ASDIRECTED PRN PRN Reason: Keep Vein Open Last Admin: 06/24/18 16:39 Dose: 10 ml Sodium Chloride (Saline Flush) 2.5 ml FLUSH ASDIRECTED PRN PRN Reason: Keep Vein Open Last Admin: 06/24/18 16:39 Dose: 2.5 ml Temazepam (Restoril) 15 mg PO BEDTIME PRN PRN Reason: Sleep Discontinued Medications Diltiazem HCl (Diltiazem) 10 mg IVPUSH ONETIME ONE Stop: 06/24/18 16:34 Last Admin: 06/24/18 16:40 Dose: 10 mg Diltiazem HCl (Diltiazem) 10 mg IVPUSH ONETIME ONE Stop: 06/24/18 16:58 Last Admin: 06/24/18 17:18 Dose: 10 mg Enoxaparin Sodium (Lovenox) 75 mg SUBCUT ONETIME ONE Stop: 06/24/18 16:34 Last Admin: 06/24/18 16:39 Dose: 75 mg Enoxaparin Sodium (Lovenox) 40 mg SUBCUT Q24H [facility] Last Admin: 06/24/18 20:54 Dose: Not Given Sodium Chloride (Normal Saline) 1,000 mls @ 999 mls/hr IV STAT ONE Stop: 06/24/18 17:30 Last Admin: 06/24/18 16:39 Dose: 999 mls/hr Sodium Chloride (Normal Saline) 1,000 mls @ 125 mls/hr IV ASDIRECTED [facility] Last Infusion: 06/24/18 18:42 Dose: 999 mls/hr Iopamidol (Isovue-370 (76%)) 50 ml IV ONETIME ONE Stop: 06/24/18 18:51 Last Admin: 06/24/18 18:50 Dose: 50 ml Nicotine (Habitrol) 14 mg TRDERM DAILY [facility] Last Admin: 06/24/18 20:39 Dose: Not Given Ondansetron HCl (Zofran) 4 mg IVPUSH ONETIME ONE Stop: 06/24/18 16:31 Last Admin: 06/24/18 16:40 Dose: 4 mg - Exam Quality Assessment: No: Supplemental Oxygen General: Alert, Oriented Neck: Supple Lungs: Clear to Auscultation, Normal Respiratory Effort Cardiovascular: No Murmurs, Irregular Rhythm GI/Abdominal Exam: Normal Bowel Sounds, Soft, Non-Tender, No Organomegaly, No Distention, No Abnormal Bruit, No Mass, Pelvis Stable Neurological: No New Focal Deficit Psy/Mental Status: Alert, Normal Affect, Normal Mood - Problem List & Annotations (1) Atrial fibrillation with RVR SNOMED Code(s): 661048756218125 Code(s): I48.91 - UNSPECIFIED ATRIAL FIBRILLATION Status: Acute Priority : High Current Visit: Yes (2) Anemia SNOMED Code(s): 442695977 Code(s): D64.9 - ANEMIA, UNSPECIFIED Status: Acute Current Visit: Yes Qualifiers: Anemia type: unspecified type Qualified Code(s): D64.9 - Anemia, unspecified (3) Transaminitis SNOMED Code(s): 322914306, 219360493 Code(s): R74.0 - NONSPEC ELEV OF LEVELS OF TRANSAMNS & LACTIC ACID DEHYDRGNSE Status: Acute Priority: High Current Visit: Yes (4) Anxiety SNOMED Code(s): 95711995 Code(s): F41.9 - ANXIETY DISORDER, UNSPECIFIED Status: Chronic Priority: High Current Visit: Yes (5) Tobacco abuse disorder SNOMED Code(s): 558082645 Code(s): Z72.0 - TOBACCO USE Status: Chronic Priority: High Current Visit: Yes (6) Depression SNOMED Code(s): 37594598 Code(s): F32.9 - MAJOR DEPRESSIVE DISORDER, SINGLE EPISODE, UNSPECIFIED Status: Chronic Priority: Medium Current Visit: Yes Qualifiers: Depression Type: major depressive disorder Major depression recurrence: unspecified whether recurrent Active/Remission status: currently active Major depression episode severity: severe Psychotic features: without psychotic features Qualified Code(s): F32.2 - Major depressive disorder, single episode, severe without psychotic features - Problem List Review Problem List Initiated/Reviewed/Updated: Yes - My Orders Last 24 Hours: My Active Orders 06/25/18 07:58 MAGNESIUM [CHEM] Routine 06/25/18 08:07 FERRITIN [CHEM] Routine FOLIC ACID [CHEM] Routine IRON/TIBC [CHEM] Routine RETICULOCYTE COUNT [HEME] Routine TRANSFERRIN [CHEM] Routine VITAMIN B12 [CHEM] Routine - Plan Plan:: THis 67 year old male admitted with A fib RVR 1. Afib with RVR: Rates still elevating intermittently to 150s. Start Diltiazem 30 IR, will increase to 60 mg and monitor on telemetry. Mg and K WNL. CHADS- VASC2 score is 1, keep on ASA for now. 2. Anemia: Iron studies pending. Will order Hemoccult as well. Denies black or bloody BMs. no history of GERD. 3. Depression: Continue Abilify. No suicidal ideation. Stable. VTE prophylaxis: Lovenox. Will monitor with hgb. DIspo: 1-2 days, Social work consulted for help with this.
[2018-06-25] MEDS: ARIPiprazole 10 MG Tab PO SCH (08:10)
[2018-06-25] MEDS ORDERED: Bismuth Subsalicylate 262 MG/15 ML Susp 236 ML Bottle PO ONE (09:15)
[2018-06-25] MEDS: Diltiazem IR 30 MG Tab PO SCH ×2 (09:51→12:08)
[2018-06-25] MEDS ORDERED: Enoxaparin 40 MG/0.4 ML Syringe SUBCUT SCH (17:00)
[2018-06-25] MEDS: Diltiazem IR 60 MG Tab PO SCH (17:59)
[2018-06-26] MEDS: Diltiazem IR 60 MG Tab PO SCH ×2 (00:09→07:30)
[2018-06-26] MEDS: Diltiazem 25 MG/5 ML SDV IVPUSH PRN (04:32)
[2018-06-26] MEDS: Acetaminophen 325 MG Tab PO PRN (08:27)
[2018-06-26] MEDS: ARIPiprazole 10 MG Tab PO SCH (08:41)
[2018-06-26] MEDS ORDERED: Aspirin 325 MG Tab PO SCH (09:00)
[2018-06-26] MEDS ORDERED: Diltiazem 120 MG Cap.CD PO ONE (09:07)
--- NOTE | 2018-06-26 09:08 | PCM.DCSUM1 ---
Discharge Summary - Hospital Course Brief History: The patient is a 67-year-old gentleman who is currently being followed by [facility] and was sent here via EMS. The patient is currently living in a local motel and his also security money ran out and he no longer has a place to live nor does he have any foods. The patient has been complaining of pain secondary to his arthritis however during the emergency department visit he was noted to be short of breath and have atrial fibrillation with RVR. The patient's heart rate was around 160 bpm. The patient's narration is somewhat scattered and he says that he has been taking his Abilify. He seems that he has no concern with regards to his A. fib with RVR at this time. The patient has denied any pain except associated with his ankles and knees due to his arthritis. He also says that he has been hungry. He has denied any chest pain or palpitations. The patient has no other visits locally with medical services and he says that he is from [place] and he came here because "they don't want me there". Diagnosis: Stroke: No - Discharge Data Discharge Date: 06/26/18 Discharge Disposition: Home, Self-Care 01 Condition: Good - Discharge Diagnosis/Problem(s) (1) Atrial fibrillation with RVR SNOMED Code(s): 082330346102404 ICD Code: I48.91 - UNSPECIFIED ATRIAL FIBRILLATION Status: Acute Priority : High (2) Anemia SNOMED Code(s): 869694547 ICD Code: D64.9 - ANEMIA, UNSPECIFIED Status: Acute Qualifiers: Anemia type: unspecified type Qualified Code(s): D64.9 - Anemia, unspecified (3) Transaminitis SNOMED Code(s): 722844192, 882450127 ICD Code: R74.0 - NONSPEC ELEV OF LEVELS OF TRANSAMNS & LACTIC ACID DEHYDRGNSE Status: Acute Priority: High (4) Anxiety SNOMED Code(s): 51194333 ICD Code: F41.9 - ANXIETY DISORDER, UNSPECIFIED Status: Chronic Priority : High (5) Tobacco abuse disorder SNOMED Code(s): 340605195 ICD Code: Z72.0 - TOBACCO USE Status: Chronic Priority: High (6) Depression SNOMED Code(s): 76206265 ICD Code: F32.9 - MAJOR DEPRESSIVE DISORDER, SINGLE EPISODE, UNSPECIFIED Status: Chronic Priority: Medium Qualifiers: Depression Type: major depressive disorder Major depression recurrence: unspecified whether recurrent Active/Remission status: currently active Major depression episode severity: severe Psychotic features: without psychotic features Qualified Code(s): F32.2 - Major depressive disorder, single episode, severe without psychotic features - Patient Instructions Diet: Heart Healthy Diet Activity: As Tolerated Showering/Bathing: May Shower Notify Provider of: Fever, Increased Pain, Swelling and Redness, Drainage, Nausea and/or Vomiting - Discharge Plan *PRESCRIPTION DRUG MONITORING PROGRAM REVIEWED*: Not Applicable *COPY OF PRESCRIPTION DRUG MONITORING REPORT IN PATIENT [facility]: Not Applicable Prescriptions/Med Rec: ARIPiprazole [Abilify] 5 mg PO DAILY #30 tablet Diltiazem [Dilacor XR] 240 mg PO DAILY #30 cap.er Home Medications: Home Meds Acetaminophen [Tylenol Extra Strength] 500 mg PO ASDIRECTED PRN 06/24/18 [ History] ARIPiprazole [Abilify] 5 mg PO DAILY #30 tablet 06/26/18 [Rx] Aspirin 325 mg PO DAILY tablet 06/26/18 [Rx] Diltiazem [Dilacor XR] 240 mg PO DAILY #30 cap.er 06/26/18 [Rx] Oxygen Therapy Mode: Room Air Patient Handouts: Diltiazem tablets, Atrial Fibrillation, [id number], Aripiprazole tablets Referrals: Kit Mckeon MD [Resident] - 07/04/18 2:30 pm - Discharge Summary/Plan Comment DC Time >30 min.: No Discharge Summary/Plan Comment: Discharge Diagnoses: Afib with RVR- RVR resolved Depression Anemia Molina was admitted secondary to afib with RVR, he was treated with IV push Diltiazem initially, then transitioned to oral dosing. Oernight he was controlled with Diltiazem 60 mg Q6hr, with intermittent elevations to 130s. This morning Shankar was dressed and requesting discharge home. He refused labwork and did not want any further evaluation. He will be given prescription for Diltiazem CD 240 mg daily along with ASA daily for stroke prevention. He also asked for refill of his Abilify, which was also sent to his pharmacy. He is to follow up with PCP in 1 week. Return to ED or clinic if concerns should arise. - General Info Date of Service: 06/26/18 Admission Dx/Problem (Free Text: Admission Diagnosis/Problem Admission Diagnosis/Problem Atrial fibrillation Subjective Update: Sitting on edge of bed, fully dressed asking to be discharged now. Refused labwork this morning, just wants to leave. No complaints. Reports he is feeling much better today. No shortness of breath, no chest pain and no abdominal pain. Functional Status: Reports: Tolerating Diet, Ambulating, Urinating - Review of Systems General: Reports: No Symptoms. Denies: Fever, Weakness, Fatigue HEENT: Reports: No Symptoms. Denies: Headaches, Sore Throat Pulmonary: Reports: No Symptoms. Denies: Shortness of Breath Cardiovascular: Reports: No Symptoms. Denies: Chest Pain Gastrointestinal: Reports: No Symptoms. Denies: Abdominal Pain, Nausea, Vomiting Genitourinary: Reports: No Symptoms. Denies: Dysuria, Frequency, Burning Musculoskeletal: Reports: No Symptoms Skin: Reports: No Symptoms Neurological: Reports: No Symptoms Psychiatric: Reports: No Symptoms - Patient Data Vitals - Most Recent: Last Vital Signs Temp 98.0 F 06/26/18 07:40 Pulse 78 06/26/18 07:40 Resp 15 06/26/18 07:40 BP 111/71 06/26/18 07:40 Pulse Ox 98 06/26/18 07:40 Weight - Most Recent: 74.389 kg I&O - Last 24 hours: Intake & Output 06/25/18 06/26/18 06/26/18 22:59 06:59 14:59 Intake Total 800 600 Output Total 350 Balance 450 600 Lab Results - Last 24 hrs: Laboratory Results - last 24 hr 06/25/18 06/25/18 Range/Units 05:18 09:17 RBC 3.97 L (4.50-5.90) M/uL Absolute Retic 54.00 (20-80) K/uL Percent Retic 1.4 (0.5-1.5) % Immature Retic Fraction 24 % Vitamin B12 383 (193-986) pg/mL Folate 6.80 L (8.60-58.90) ng/mL [facility] Results - Last 24 hrs: Microbiology 06/26/18 04:00 Stool Occult Blood ([facility]) - Final Stool / Feces NEGATIVE OCCULT BLOOD Med Orders - Current: Current Medications Acetaminophen (Tylenol) 650 mg PO Q4H PRN PRN Reason: Pain (Mild 1-3)/fever Last Admin: 06/26/18 08:27 Dose: 650 mg Aripiprazole (Abilify) 5 mg PO DAILY [facility] Last Admin: 06/26/18 08:41 Dose: 5 mg Aspirin (Aspirin) 325 mg PO DAILY [facility] Diltiazem HCl (Diltiazem) 10 mg IVPUSH Q3H PRN PRN Reason: HR above 100 Last Admin: 06/26/18 04:32 Dose: 10 mg Diltiazem HCl (Cardizem) 60 mg PO Q6HR [facility] Last Admin: 06/26/18 07:30 Dose: 60 mg Docusate Sodium (Colace) 100 mg PO BID PRN PRN Reason: Constipation Enoxaparin Sodium (Lovenox) 40 mg SUBCUT Q24H [facility] Last Admin: 06/25/18 17:55 Dose: Not Given Ondansetron HCl (Zofran Odt) 4 mg PO Q4H PRN PRN Reason: nausea, able to take PO Oxycodone HCl (Oxycodone) 5 mg PO Q4H PRN PRN Reason: Pain (moderate 4-6) Sodium Chloride (Saline Flush) 10 ml FLUSH ASDIRECTED PRN PRN Reason: Keep Vein Open Last Admin: 06/24/18 16:39 Dose: 10 ml Sodium Chloride (Saline Flush) 2.5 ml FLUSH ASDIRECTED PRN PRN Reason: Keep Vein Open Last Admin: 06/24/18 16:39 Dose: 2.5 ml Temazepam (Restoril) 15 mg PO BEDTIME PRN PRN Reason: Sleep Discontinued Medications Bismuth Subsalicylate (Pepto Bismol) 10 ml PO ONETIME ONE Stop: 06/25/18 09:16 Last Admin: 06/25/18 09:51 Dose: 10 ml Diltiazem HCl (Diltiazem) 10 mg IVPUSH ONETIME ONE Stop: 06/24/18 16:34 Last Admin: 06/24/18 16:40 Dose: 10 mg Diltiazem HCl (Diltiazem) 10 mg IVPUSH ONETIME ONE Stop: 06/24/18 16:58 Last Admin: 06/24/18 17:18 Dose: 10 mg Diltiazem HCl (Cardizem) 30 mg PO Q6HR [facility] Last Admin: 06/25/18 12:08 Dose: 30 mg Enoxaparin Sodium (Lovenox) 75 mg SUBCUT ONETIME ONE Stop: 06/24/18 16:34 Last Admin: 06/24/18 16:39 Dose: 75 mg Enoxaparin Sodium (Lovenox) 40 mg SUBCUT Q24H [facility] Last Admin: 06/24/18 20:54 Dose: Not Given Sodium Chloride (Normal Saline) 1,000 mls @ 999 mls/hr IV STAT ONE Stop: 06/24/18 17:30 Last Admin: 06/24/18 16:39 Dose: 999 mls/hr Sodium Chloride (Normal Saline) 1,000 mls @ 125 mls/hr IV ASDIRECTED [facility] Last Infusion: 06/24/18 18:42 Dose: 999 mls/hr Sodium Chloride (Normal Saline) 1,000 mls @ 75 mls/hr IV ASDIRECTED [facility] Last Admin: 06/24/18 20:58 Dose: 75 mls/hr Iopamidol (Isovue-370 (76%)) 50 ml IV ONETIME ONE Stop: 06/24/18 18:51 Last Admin: 06/24/18 18:50 Dose: 50 ml Nicotine (Habitrol) 14 mg TRDERM DAILY [facility] Last Admin: 06/24/18 20:39 Dose: Not Given Ondansetron HCl (Zofran) 4 mg IVPUSH ONETIME ONE Stop: 06/24/18 16:31 Last Admin: 06/24/18 16:40 Dose: 4 mg - Exam General: Reports: Alert, Oriented, Cooperative, No Acute Distress Neck: Reports: Supple Lungs: Reports: Clear to Auscultation, Normal Respiratory Effort Cardiovascular: Reports: Regular Rate, No Murmurs, Irregular Rhythm. Denies: Tachycardia GI/Abdominal Exam: Normal Bowel Sounds, Soft, Non-Tender Extremities: Normal Inspection, Normal Range of Motion, Non-Tender, No Pedal Edema Neurological: Reports: No New Focal Deficit Psy/Mental Status: Reports: Alert, Normal Affect, Normal Mood
== END 2018-06-26 10:00 | disposition home or self-care (01) ==
LOC: MW.ED 16:28 → MW.MS 18:04
PROVIDERS: ADMIT Internal Medicine; ATTEND Internal Medicine
DX: I48.91 Unspecified atrial fibrillation (principal); F32.9 Major depressive disorder, single episode, unspecified; F41.9 Anxiety disorder, unspecified; E87.5 Hyperkalemia; R74.0 Nonspecific elevation of levels of transaminase and lactic acid dehydrogenase [LDH]; D50.9 Iron deficiency anemia, unspecified; Z79.899 Other long term (current) drug therapy; Z88.0 Allergy status to penicillin; Z87.891 Personal history of nicotine dependence
CPT/HCPCS: 36415; 71045; 71275; 80053; 81001; 82272; 82607; 82728; 82746; 82962; 83550; 83605; 83735; 84443; 84484; 85025; 85045; 85379; 85610; 87804; 88104; 93005; 96361; 96374; 96375; 96376; 99285; A9270; J1650; J2405; J3490; J7040; Q9967; 96372; 99284